=== PATIENT | female | born 1945 | race African-American/Black ===

== ENCOUNTER 2017-12-23 08:29 | Observation (INO) ==
[2017-12-23] MEDS ORDERED: ASPIRIN 325 MG TABLET PO STA (08:53)
[2017-12-23] MEDS ORDERED: NITROGLYCERIN SL 0.4 MG TABLET SL PRN (08:53)
[2017-12-23] MEDS ORDERED: ONDANSETRON 4 MG/2 ML VIAL IV PRN ×2 (08:53→11:02)
[2017-12-23] MEDS ORDERED: NITROGLYCERIN 2% OINT 1 INCH/GM PACK TOP STA (08:53)
[2017-12-23] MEDS ORDERED: NITROGLYCERIN 2% OINT 1 INCH/GM PACK TOP ONE (09:11)
[2017-12-23] MEDS ORDERED: ASPIRIN 325 MG TABLET ONE (09:12)
[2017-12-23] MEDS ORDERED: METOPROLOL TARTRATE 5 MG/5 ML VIAL IV ONE (09:12)
[2017-12-23] MEDS ORDERED: METOPROLOL TARTRATE 5 MG/5 ML VIAL IV STA (09:15)
[2017-12-23 09:16] LABS: Basophils % 0.6 % (0.0-0.8); Eosinophils # 0.2 10*3/uL (0.0-0.87); Eosinophils % 2.4 % (0.00-10.9); Hematocrit 40.8 VOL% (35.7-47.0); Hemoglobin 12.9 GM/DL (12.0-16.0); Immature Granulocytes % 0.6 %; Immature Granulocytes Absolute 0.04 #; Lymphocytes # 1.7 10*3/uL (1.4-4.0); Lymphocytes % 25.1 % (21.3-54.2); Mean Corpuscular HGB Conc 31.6 GM/DL (32-36); Mean Corpuscular Hemoglobin 31 PG (27-34); Mean Corpuscular Volume 96.7 FL (87-102); Mean Platelet Volume 12.2 FL (9.6-12.0); Monocytes # 0.4 10*3/uL (0.11-0.8); Monocytes % 6.4 % (1.7-12.7); Neutrophils # 4.4 10*3/uL (1.4-7.4); Neutrophils % 64.9 % (38.7-73.9); Platelet Count 241 T/CUMM (130-400); Red Blood Count 4.22 MC/CUMM (3.8-5.5); Red Cell Distribution Width 15.3 % (9.3-17.3); White Blood Count 6.7 T/CUMM (4-12)
[2017-12-23 09:24] LABS: PT Patient Result 10.2 SECS; Partial Thromboplastin Time 34.3 SECS (0-40)
[2017-12-23 09:58] LABS: Alanine Aminotransferase 27 U/L (13-56); Albumin 4.1 G/DL (3.4-5.0); Alkaline Phosphatase 182 U/L (45-117); Aspartate Amino Transferase 17 U/L (0-37); Bilirubin,Total < 0.39 MG/DL (0.2-1.0); Blood Urea Nitrogen 17 MG/DL (7-18); Calcium 10.1 MG/DL (8.5-10.1); Glucose 120 MG/DL (74-106); Potassium 4.1 MMOL/L (3.5-5.1); Sodium 143 MMOL/L (136-145); Total Protein 7.6 G/DL (6.4-8.3)
[2017-12-23] MEDS ORDERED: ACETAMINOPHEN 325 MG TABLET PO PRN (11:02)
[2017-12-23] MEDS ORDERED: DOCUSATE SODIUM 100 MG CAPSULE PO PRN (11:02)
[2017-12-23] MEDS ORDERED: DEXTROSE 50% 25 GM/50 ML VIAL IV PRN (11:02)
[2017-12-23] MEDS ORDERED: GLUCAGON 1 MG VIAL IM PRN (11:02)
[2017-12-23] MEDS: INSULIN REGULAR 100 UNIT/ML SUBCUT SCH ×3 (14:43→23:21)
[2017-12-23] MEDS: cloNIDine 0.1 MG TABLET PO SCH (23:26)
[2017-12-24 04:55] LABS: Basophils # 0.1 10*3/uL (0.0-0.2); Basophils % 0.7 % (0.0-0.8); Eosinophils # 0.2 10*3/uL (0.0-0.87); Eosinophils % 2.5 % (0.00-10.9); Hematocrit 36.5 VOL% (35.7-47.0); Hemoglobin 11.9 GM/DL (12.0-16.0); Immature Granulocytes % 0.7 %; Immature Granulocytes Absolute 0.05 #; Lymphocytes # 1.8 10*3/uL (1.4-4.0); Lymphocytes % 26.3 % (21.3-54.2); Mean Corpuscular HGB Conc 32.6 GM/DL (32-36); Mean Corpuscular Hemoglobin 31 PG (27-34); Mean Corpuscular Volume 93.6 FL (87-102); Mean Platelet Volume 12.5 FL (9.6-12.0); Monocytes # 0.5 10*3/uL (0.11-0.8); Monocytes % 7.6 % (1.7-12.7); Neutrophils # 4.2 10*3/uL (1.4-7.4); Neutrophils % 62.2 % (38.7-73.9); Platelet Count 250 T/CUMM (130-400); Red Cell Distribution Width 15.4 % (9.3-17.3); White Blood Count 6.8 T/CUMM (4-12)
[2017-12-24 05:38] LABS: Calcium 9.6 MG/DL (8.5-10.1); Osmolality,Calculated 284.3 MOS/KG (273-304); Potassium 4.1 MMOL/L (3.5-5.1)
[2017-12-24] MEDS ORDERED: PANTOPRAZOLE 40 MG TABLET PO SCH (09:00)
[2017-12-24] MEDS ORDERED: LOSARTAN 50 MG TABLET PO SCH (09:00)
[2017-12-24] MEDS: INSULIN REGULAR 100 UNIT/ML SUBCUT SCH ×2 (09:45→13:41)
[2017-12-24] MEDS ORDERED: amLODIPine 10 MG TABLET PO SCH (11:05)
[2017-12-24] MEDS ORDERED: CARVEDILOL 3.125 MG TABLET PO SCH (11:30)
[2017-12-24] MEDS ORDERED: ASPIRIN EC 81 MG TABLET PO SCH (11:30)
[2017-12-24] MEDS ORDERED: DEXTROSE 50% 25 GM/50 ML VIAL IV PRN (11:37)
[2017-12-24] MEDS ORDERED: GLUCAGON 1 MG VIAL IM PRN (11:37)
[2017-12-24 11:56] VITALS: BP 172/84
[2017-12-24] MEDS ORDERED: hydroCHLOROthiazide 12.5 MG CAPSULE PO SCH (13:30)
[2017-12-24] MEDS: cloNIDine 0.1 MG TABLET PO SCH (13:37)
[2017-12-24] MEDS ORDERED: SIMVASTATIN 20 MG TABLET PO SCH (21:00)
[2017-12-24] MEDS ORDERED: FERROUS SULFATE 325 MG TABLET PO SCH (21:00)
[2017-12-25] MEDS ORDERED: amLODIPine 10 MG TABLET PO SCH (09:00)
[2017-12-25] MEDS ORDERED: CLOPIDOGREL 75 MG TABLET PO SCH (09:00)
[2017-12-25] MEDS ORDERED: SIMVASTATIN 20 MG TABLET PO SCH (09:00)
== END 2017-12-24 14:56 | disposition home or self-care (01) ==
LOC: N.EDINP 08:29 → N.ED 08:29 → SUATTDRO 10:41 → N.TELES 15:15
PROVIDERS: ADMIT Internal Medicine Infectious Disease; ATTEND Internal Medicine